=== PATIENT | male | born 1975 | race Caucasian/White ===

== ENCOUNTER → 2016-02-17 | Outpatient (CLI) | payer BC, MEDICAID ==
[2016-02-17 10:19] LABS: ALT 165 U/L (21-72); AST 79 U/L (17-59); Alkaline Phosphatase 60 U/L (38-126); Anion Gap 16 mmol/L; Blood Urea Nitrogen 11 mg/dL (9-20); Calcium 9.8 mg/dL (8.4-10.2); Carbon Dioxide 27 mmol/L (22-30); Chloride 102 mmol/L (98-107); Glucose 92 mg/dL (74-99); Non-African American GFR(MDRD) >60 (>60 ml/min/1.73 sqM); Potassium 4.5 mmol/L (3.5-5.1); Sodium 145 mmol/L (137-145); Total Bilirubin 1.1 mg/dL (0.2-1.3); Total Protein 7.6 g/dL (6.3-8.2)
[2016-02-17 10:50] LABS: Hepatitis B Surface Ag Index 0.05
[2016-02-17 10:56] LABS: Hepatitis B Core IgM Index 0.04
[2016-02-17 11:07] LABS: Hepatitis C Virus IgG Index 0.01
[2016-02-17 11:12] LABS: Hepatitis C Virus IgG Ab Negative (Negative)
== END | disposition home or self-care (01) ==
LOC: LABWHC1 08:21
PROVIDERS: ATTEND Internal Medicine
DX: D64.9 Anemia, unspecified (principal); R94.5 Abnormal results of liver function studies; I10 Essential (primary) hypertension
CPT/HCPCS: 36415; 80053; 80074; 82728; 83516; 86038; 86376

== ENCOUNTER → 2016-02-21 | Outpatient (CLI) | payer BC ==
--- NOTE | 2016-02-21 08:15 | US ---
EXAMINATION TYPE: US abdomen complete DATE OF EXAM: 02/21/2016 7:20 AM COMPARISON: 2012 Limited abdominal ultrasound and March 26, 2009 CT CAP in PACS CLINICAL HISTORY: Abnormal LFT's EXAM MEASUREMENTS: Liver Length: 18.0 cm Gallbladder Wall: 0.2 cm CBD: 0.3 cm Spleen: 13.1 cm Right Kidney: 12.0 x 5.6 x 6.1 cm Left Kidney: 13.3 x 5.4 x 5.9 cm ANATOMY: TECHNOLOGIST IMPRESSION: Pancreas: Majority of pancreas obscured by bowel gas Liver: Heterogeneously hyperechoic suggesting diffuse fatty infiltration. Gallbladder: wnl Evidence for sonographic Higgins's sign: No CBD: wnl Spleen: Upper limits of normal for size stable from 2010 CT Right Kidney: wnl Left Kidney: No evidence of hydro Upper IVC: wnl Abd Aorta: wnl Heterogeneous hyperechoic liver without intrahepatic ductal dilatation. Evaluation for focal masses i s limited due to the heterogeneity. IMPRESSION: Heterogeneous liver may reflect diffuse fatty infiltration or underlying hepatocellular d isease. Former is favored. Imaging guided random biopsy for tissue analysis can be performed if cassie ed.
== END | disposition home or self-care (01) ==
LOC: RADUSWWP 06:59
PROVIDERS: ATTEND Internal Medicine
DX: R94.5 Abnormal results of liver function studies (principal)
CPT/HCPCS: 76700

== ENCOUNTER → 2017-08-29 | Outpatient (CLI) | payer BC, MEDICAID ==
--- NOTE | 2017-08-29 21:04 | CONS ---
CONSULTATION DATE OF SERVICE: 08/29/2018 42-year-old gentleman who has been evaluated in Sleep Center for obstructive sleep apnea-hypopnea syndrome. HISTORY OF PRESENT ILLNESS/SLEEP WAKE EVALUATION: Patient usual sleep schedule from 11:00 p.m. to 6 am and he gets out of bed at 6:15 am to 6:30 a.m. on working days and about 9:00 a.m. on weekends. FALLING ASLEEP: No problem with falling asleep, although he has TV set in bedroom. DURING SLEEP: He wakes up from sleep 2 times with nocturia. He snores, has witnessed episodes of stopped breathing during the sleep. He also remembers awakenings from sleep with gasping for air and dry mouth. DURING THE DAY/SLEEP WAKE EVALUATION: During the day, he has problem with concentration. [place] Sleepiness Scale increased to 10. PAST MEDICAL HISTORY: Positive for hypertension. PAST SURGICAL HISTORY: Rectal fistula surgery 2014. MEDICATIONS: Lotrel, vitamins B12, C, aspirin, multivitamins. SOCIAL HISTORY: Positive for smoking in the past, quit 6 years ago. Alcohol consumption occasional. FAMILY HISTORY: Hypertension, heart problems, hyperlipidemia, arthritis, sleep apnea, snoring, insomnia. REVIEW OF SYSTEMS: Awakenings from sleep, sleepiness during the day. Increasing weight. Patient increased his weight for the last 5 years and around 25 pounds. PHYSICAL EXAM: gentleman without distress. BP 140/84, HR 84, RR 18, height 5 feet 9 inches, weight 248.4, BMI 36.6, temperature 98.0. Oxygen saturation on room air 96%. Oropharynx extremely low position of soft palate. Slight restriction of nasal breathing. ABDOMEN: Obese. Neck Supple, no JVD. Thyroid is not palpable. LUNGS Clear to percussion and to auscultation. Good air exchange. No wheezing or rhonchi. HEART S1, S2 regular. No murmurs, gallops, or rubs. ABDOMEN: Obese. Soft and nontender. Bowel sounds are present. No organomegaly appreciated. EXTREMITIES No clubbing or cyanosis. FINGERNAIL SCULPTOR Awake, alert, and oriented X3. Cranial nerves 2 to 7 intact. There is no fasciculation or atrophy. noted. No focal deficits observed. IMPRESSION: 1. Snoring, witnessed episodes of stopped breathing during the sleep awakenings with gasping for air, extremely low position of soft palate, wide neck 18-1/2 inches in circumference. Obstructive sleep apnea-hypopnea syndrome. 2. Obesity, BMI 36.6. 3. Hypertension. 4. Status post surgery for rectal fistula in 2014. PLAN: 1. Polysomnography for evaluation of patient's breathing during sleep. 2. CPAP/BiPAP titration if sleep study confirms obstructive sleep apnea-hypopnea syndrome. 3. Preferable position during sleep on the side. 4. No driving if patient feels any sleepiness. 5. I will see patient for follow up visit to explain results of testing and following plan. Thank you very much for referring this patient for consultation. Sincerely, Tevin Black MD, PhD, FAASM Diplomat of [employer] of [employer] Compressor Station Operator of [facility] [place] MMODL / IJN: [id number] /
== END | disposition home or self-care (01) ==
LOC: SLEEP 16:23
PROVIDERS: ATTEND Internal Medicine
DX: G47.33 Obstructive sleep apnea (adult) (pediatric) (principal); M27.8 Other specified diseases of jaws; E66.9 Obesity, unspecified; I10 Essential (primary) hypertension; Z98.890 Other specified postprocedural states; Z87.891 Personal history of nicotine dependence; Z79.82 Long term (current) use of aspirin; Z68.36 Body mass index [BMI] 36.0-36.9, adult; Z79.899 Other long term (current) drug therapy; Z83.6 Family history of other diseases of the respiratory system
CPT/HCPCS: 99211

== ENCOUNTER → 2018-01-30 | Outpatient (CLI) | payer MEDICAID ==
--- NOTE | 2018-01-30 16:52 | PN ---
PROGRESS NOTE DATE OF SERVICE: 01/30/2018 This patient is a 43-year-old gentleman who has been followed in Sleep Center for treatment of obstructive sleep apnea-hypopnea syndrome. Recently the patient had a polysomnogram and CPAP titration, and I discussed results of the sleep studies with the patient in detail. He has severe sleep apnea. Subsequently after titration he received his CPAP unit and started to use it. Today is his first visit following his receipt of his CPAP unit. The patient is able to use CPAP equipment most of the night without significant problems related to mask fitting, pressure and humidification. Sometimes he feels it is not enough pressure for him when he is starting to use CPAP. He feels better with the CPAP. He sleeps better and feels better during the day. [place] Sleepiness Scale is 0 today. I checked his CPAP machine. CPAP pressure is 11 cm of water. RAMP started from 5 cm of water in automatic regimen. Usage is 27/30 nights and about 70% of the nights for more than 4 hours. Average usage 5.2 hours. Leak is 20 L/minute, which is in normal range. Apnea-hypopnea index only 0.1, which is absolutely perfect. MEDICATIONS: 1. Lotrel. 2. Vitamin B12. 3. Aspirin. 4. Multivitamins. PHYSICAL EXAMINATION: GENERAL: A pleasant patient in no distress. VITAL SIGNS: BP 125/86, HR 80, RR 16, weight 249, temperature 97.8, oxygen saturation at room air 95%. HEENT: PERRLA, EOMI. Evaluation of oropharynx showed tongue protrudes midline. Extremely low position of soft palate. NECK: Supple. No JVD. Thyroid is not palpable. LUNGS: Clear to percussion and to auscultation. Good air exchange. No wheezing or rhonchi. HEART: S1, S2 regular. No murmurs, gallops or rubs. ABDOMEN: Slightly obese. EXTREMITIES: No clubbing or cyanosis. SPORTS COMMENTATOR: Awake, alert, and oriented X3. Cranial nerves 2 to 7 intact. There is no fasciculation or atrophy. noted. No focal deficits observed. IMPRESSION: 1. Severe obstructive sleep apnea-hypopnea syndrome; apnea-hypopnea index 42 with oxygen saturation 84%, controlled with CPAP at 11 cm of water. Patient demonstrated good compliance with treatment, benefitting from treatment. 2. Obesity. 3. Hypertension. 4. Status post surgery for rectal fistula in 2014. PLAN: 1. Patient will continue to use CPAP equipment every night for the whole night. 2. I changed RAMP from automatic regimen starting at 5 cm of water to 15 cm of time frame starting from 7 cm of water. 3. Losing weight. 4. Sleep hygiene with regular time in bed for at least 8 hours. 5. No driving if feeling any sleepiness. 6. We will maintain all necessary prescription for mask, tube and filters. Thank you very much for allowing me to participate in the management of your patient. Sincerely, Tevin Black MD, PhD, FAASM Diplomat of [employer] of [employer] Medicine Cancellation Clerk of [facility] [place] MMODL / IJN: [id number] /
== END | disposition home or self-care (01) ==
LOC: SLEEP 15:33
PROVIDERS: ATTEND Internal Medicine
DX: G47.33 Obstructive sleep apnea (adult) (pediatric) (principal); E66.9 Obesity, unspecified; I10 Essential (primary) hypertension; Z99.89 Dependence on other enabling machines and devices; Z98.890 Other specified postprocedural states; Z79.82 Long term (current) use of aspirin; Z79.899 Other long term (current) drug therapy

== ENCOUNTER → 2019-03-12 | Outpatient (CLI) | payer MEDICAID ==
--- NOTE | 2019-03-12 09:20 | US ---
EXAMINATION TYPE: US liver DATE OF EXAM: 03/12/2019 COMPARISON: CLINICAL HISTORY: Abn liver function studies R94.5. abnormal labs. Hx fatty liver. EXAM MEASUREMENTS: Liver Length: 11.1 x 6.0 x 6.4 cm Gallbladder Wall: 0.2 cm CBD: 0.5 cm Right Kidney: 11.1 x 6.0 x 6.4 cm Pancreas: Tail obscured by overlying bowel gas Liver: Increased attenuation, decreased visualization of vessels suggestive of fatty infiltrate. Ar ea of focal sparing visualized adjacent to GB. Gallbladder: wnl, fold seen Evidence for sonographic Higgins's sign: neg CBD: wnl Right Kidney: No hydronephrosis or masses seen , cortical measured differentiation is maintained. There is no ascites. IMPRESSION: Findings suggest hepatic steatosis. Exam is limited. The may be underlying hepatomegaly.
== END | disposition home or self-care (01) ==
LOC: RADUSWWP 07:30
PROVIDERS: ATTEND Internal Medicine
DX: R94.5 Abnormal results of liver function studies (principal)
CPT/HCPCS: 76705

== ENCOUNTER → 2021-10-24 | Outpatient (CLI) | payer MEDICAID ==
[2021-10-24 14:53] LABS: HCT 50.7 % (39.6-50.0); HGB 17.3 g/dL (13.0-17.0); MCHC 34.1 g/dL (32.0-37.0); MCV 90.9 fL (80.0-97.0); Mean Platelet Volume 10.7 fL (9.5-12.2); NRBC Per 100 WBC 0 /100 WBCS (0.0-0.0); Platelet Count 176 X 10*3/uL (140-440); RBC 5.58 X 10*6/uL (4.40-5.60); RDW 12.4 % (11.5-14.5); WBC 6.08 X 10*3/uL (4.50-10.00)
[2021-10-24 15:29] LABS: Erythrocyte Sedimentation Rate 8 mm/Hr (0-15)
[2021-10-24 17:11] LABS: Chol/HDL Ratio 6.09 Ratio; LDL Cholesterol,Calculated 167.1 mg/dL (0.0-131.0); Rheumatoid Factor, Qnt <10 IU/mL (0-15)
[2021-10-24 17:15] LABS: ALT 164 U/L (10-49); AST 115 U/L (14-35); Albumin 4.8 g/dL (3.8-4.9); Albumin/Globulin Ratio 1.92 (1.60-3.17); Alkaline Phosphatase 87 U/L (41-126); BUN/Creat Ratio 9.57 Ratio (12.00-20.00); Blood Urea Nitrogen 6.7 mg/dL (9.0-27.0); Calcium 9.5 mg/dL (8.7-10.3); Carbon Dioxide 27.3 mmol/L (20.0-27.5); Chloride 100 mmol/L (96-109); Globulin 2.5 g/dL (1.6-3.3); Glucose 98 mg/dL (70-110); Non-African American GFR(CKD) 114.8 (60.0-200.0); Potassium 3.8 mmol/L (3.5-5.5); Sodium 141 mmol/L (135-145); Total Protein 7.3 g/dL (6.2-8.2)
== END | disposition home or self-care (01) ==
LOC: LABWHC1 08:50
PROVIDERS: ATTEND Physician Assistant
DX: Z00.00 Encounter for general adult medical examination without abnormal findings (principal); I10 Essential (primary) hypertension; M79.641 Pain in right hand
CPT/HCPCS: 36415; 80053; 80061; 83036; 84443; 85027; 85652; 86038; 86039; 86140; 86431

== ENCOUNTER → 2023-01-24 | Outpatient (CLI) | payer MEDICAID ==
--- NOTE | 2023-01-24 15:34 | P.SLEEP ---
History of Present Illness DATE: 01/24/2023 CONSULTATION/NEW PATIENT EVALUATION HISTORY OF PRESENT ILLNESS/SLEEP-WAKE EVALUATION: 48-year-old gentleman had been evaluated in the sleep center for obstructive sleep apnea hypopnea syndrome. Patient was evaluated in our office about 4 years ago. Polysomnogram showed severe obstructive sleep apnea hypopnea syndrome with apnea-hypopnea index 39.5. Patient was started on treatment with CPAP. She successfully used CPAP for several years. Several months ago humidifier chamber was broken and patient was not able to use CPAP equipment anymore. I checked CPAP unit. CPAP pressure is 11 cm of water, leak 17 L/m, apnea-hypopnea index 6.4, which is slightly above normal normal. SLEEP SCHEDULE: Usually sleep schedule from 11 PM to 6:30 AM on weekdays and until 9 AM on weekend. FALLING ASLEEP: No problems with falling asleep. DURING SLEEP: No snoring with CPAP but patient wakes up from sleep up to 3 times with 2 episodes of nocturia presently without CPAP. No history of hypnogogical hallucinations, sleep paralysis, or cataplexy. DURING THE DAY/WAKE STATE: Patient feels tiredness and sleepiness during the day while not using CPAP. [place] sleepiness scale is 9. Usually patient doesn't take scheduled naps. PAST MEDICAL HISTORY: Hypertension. PAST SURGICAL HISTORY: Anal fissure surgery. MEDICATIONS: Lisinopril 40 mg once a day, hydrochlorothiazide 12.5 mg once a day. SOCIAL HISTORY: Positive history of smoking for 20 years up to 2 packs a day, quit 12 years ago, alcohol consumption occasional. FAMILY HISTORY: Heart problems, hyperlipidemia. REVIEW OF SYSTEMS: Snoring and sleepiness without CPAP. No fevers. No double vision. No recent chest pain. No shortness of breath. No abdominal pain. No bleeding episodes. No blood in urine. No seizure episodes. PHYSICAL EXAMINATION: GENERAL: A pleasant patient without any distress. VITAL SIGNS: BP 165/108 on the right arm and 151/90 on left arm , HR 108 , RR 16 , weight 289.2 pounds, height 5 foot 9 inches, body mass index 42.6 . HEENT: PERRLA, EOMI. Evaluation of oropharynx showed tongue protrudes midline, l ow position of soft palate Mallampati 4. NECK: Supple. No JVD. Thyroid is not palpable. 20-3/4 inches in circumference. LUNGS: Clear to percussion and to auscultation. Good air exchange. No wheezing or rhonchi. HEART: S1, S2 regular. No murmurs, gallops or rubs. ABDOMEN: Soft and nontender. Bowel sounds are present. No organomegaly appreciated. EXTREMITIES: No clubbing or cyanosis. SPORTS STATISTICIAN: Awake, alert, and oriented x3. Cranial nerves 2 to 7 intact. There is no fasciculation or atrophy noted. No focal deficits observed. ASSESSMENT: 1. Severe obstructive sleep apnea hypopnea syndrome. Humidifier chamber from CPAP unit is broken. Reading from CPAP unit showed practically normal respiration on CPAP. 2. Obesity, BMI 42.6. 3. Hypertension. 4. Status post rectal fistula surgery in 2014. PLAN: 1. Prescription for all necessary CPAP supplies including humidifier chamber. 2. Patient will continue to use CPAP equipment every night for the whole night. 3. Preferable position during sleep on the side. 4. No driving if patient feels any sleepiness. Patient is aware of civil and criminal liability for unsafe driving. 5. Sleep hygiene with regular sleep time for at least 7.5-8 hours. 6. Watching and losing weight. 7. Follow-up visit in 6 months or earlier if patient has any problems Thank you very much for referring this patient for consultation. Sincerely, Tevin Black MD, PhD, FAASM. Diplomat of [employer], Sleep Medicine Board by [employer] of [employer] Medicine Fringing Machine Operator of [facility] [place] Past Medical History Past Medical History: Hyperlipidemia, Hypertension History of Any Multi-Drug Resistant Organisms: None Reported Additional Past Surgical History / Comment(s): Anal fistula, brith gayatri removal Past Psychological History: No Psychological Hx Reported Past Alcohol Use History: Occasional Past Drug Use History: None Reported Medications and Allergies Home Medications Medication Instructions Recorded Confirmed Type Amoxic-Pot Clav 875-125Mg 1 each PO Q12HR 11/21/14 11/21/14 History [Augmentin Xr 875-125] Cephalexin [Keflex] 500 mg PO Q6HR #40 cap 11/21/14 Rx HYDROcodone/IBUPROFEN 7.5-200 1 each PO Q6HR PRN #10 tab 11/21/14 Rx [Vicoprofen 7.5-200 mg] Mupirocin 2% Oint [Bactroban 2% 1 applic TOPICAL TID #22 gm 11/21/14 Rx Oint] amLODIPine BESYLATE/BENAZEPRIL 1 each PO DAILY 11/21/14 11/21/14 History [Lotrel 10-40 mg Capsule] Allergies Allergy/AdvReac Type Severity Reaction Status Date / Time No Known Allergies Allergy Verified 11/21/14 10:40 Sleep Note - Sleep Note Sleep Note: Temperature: Pulse Rate: Respiratory Rate: Blood Pressure: SpO2: Height: Weight: BMI: Neck Circumference:
== END ==
LOC: 3 N SLEEP 14:46
PROVIDERS: ATTEND Internal Medicine
DX: G47.33 Obstructive sleep apnea (adult) (pediatric) (principal); E66.9 Obesity, unspecified; I10 Essential (primary) hypertension; Z68.41 Body mass index [BMI] 40.0-44.9, adult; Z98.890 Other specified postprocedural states; Z99.89 Dependence on other enabling machines and devices; Z79.899 Other long term (current) drug therapy; Z87.891 Personal history of nicotine dependence
CPT/HCPCS: 99211

== ENCOUNTER → 2023-03-13 | Outpatient (CLI) | payer MEDICAID ==
[2023-03-14 02:30] LABS: HCT 52.6 % (39.6-50.0); HGB 16.7 g/dL (13.0-17.0); MCH 29.9 pg (27.0-32.0); MCHC 31.7 g/dL (32.0-37.0); MCV 94.3 FL (80.0-97.0); NRBC Per 100 WBC 0 X 10*3/uL (0.00-0.01); Platelet Count 173 X 10*3/uL (140-440); RBC 5.58 X 10*6/uL (4.40-5.60); RDW 12.4 % (11.5-14.5); WBC 8.29 X 10*3/uL (4.50-10.00)
[2023-03-14 03:00] LABS: Chol/HDL Ratio 4.69 Ratio
== END | disposition home or self-care (01) ==
LOC: LABWHC1 14:24
PROVIDERS: ATTEND Physician Assistant
DX: Z00.00 Encounter for general adult medical examination without abnormal findings (principal)
CPT/HCPCS: 36415; 80061; 83036; 84403; 84443; 85027

== ENCOUNTER → 2023-04-29 | Outpatient (CLI) | payer MEDICAID ==
--- NOTE | 2023-04-29 10:49 | CA ---
Transthoracic Echo Report Name: Mitchel Cleaning Age: 48 Gender: M : 1975 Exam Date: 04/29/2023 08:51 Exam Location: [place] [facility] Ht (in): 61 Wt (lb): 280 Ordering Physician: Leslie Grigsby DO Attending/Referring Phys: Audrey Fang [facility] Home Health Physical Therapist Carey Cornell RDCS Procedure CPT: Indications: I10 HTN Cardiac Hx: Technical Quality: Contrast 1: Total Dose (mL): Contrast 2: Total Dose (mL): MEASUREMENTS (Male / Female) Normal Values 2D ECHO LV Diastolic Diameter PLAX 4.4 cm 4.2 - 5.9 / 3.9 - 5.3 cm LV Systolic Diameter PLAX 3.0 cm IVS Diastolic Thickness 1.3 cm 0.6 - 1.0 / 0.6 - 0.9 cm LVPW Diastolic Thickness 1.1 cm 0.6 - 1.0 / 0.6 - 0.9 cm LV Relative Wall Thickness 0.5 LVOT Diameter 2.2 cm LA Systolic Diameter LX 3.9 cm 3.0 - 4.0 / 2.7 - 3.8 cm LA Volume 46.4 cm??? 18 - 58 / 22 - 52 cm??? LA Volume Index 19.1 cm???/m??? 16 - 28 cm???/m??? DOPPLER AV Peak Velocity 102.7 cm/s AV Peak Gradient 4.2 mmHg AV Mean Velocity 67.6 cm/s AV Mean Gradient 2.1 mmHg AV Velocity Time Integral 20.3 cm LVOT Peak Velocity 107.9 cm/s LVOT Peak Gradient 4.7 mmHg LVOT Velocity Time Integral 21.3 cm LVOT Stroke Volume 82.8 cm??? LVOT Stroke Volume Index 38.0 ml/m??? AV Area Cont Eq vti 4.1 cm??? AV Area Cont Eq pk 4.1 cm??? MV Area PHT 3.7 cm??? Mitral E Point Velocity 82.2 cm/s Mitral A Point Velocity 78.8 cm/s Mitral E to A Ratio 1.0 MV Deceleration Time 204.8 ms TR Peak Velocity 180.5 cm/s TR Peak Gradient 13.0 mmHg PV Peak Velocity 71.8 cm/s PV Peak Gradient 2.1 mmHg FINDINGS Left Ventricle Left ventricular ejection fraction is estimated at 55-60 %. Normal left ventricular systolic function with no obvious regional wall motion abnormalities. Mildly increased wall thickness. Right Ventricle Normal right ventricular size. Right Atrium Normal right atrial pressure. Left Atrium Normal left atrial size. Mitral Valve No mitral regurgitation. Aortic Valve Trileaflet aortic valve. Tricuspid Valve Trace tricuspid regurgitation. Pulmonic Valve No pulmonic regurgitation. Pericardium No pericardial effusion. Aorta Normal size aortic root and proximal ascending aorta. CONCLUSIONS Left ventricular ejection fraction is estimated at 55-60 %. Mildly increased wall thickness. Normal left ventricular systolic function with no obvious regional wall motion abnormalities. No significant valvular dysfunction No pericardial effusion Previewed by: Dr Rolando Delarosa (Electronically Signed) Final Date: 29 April 2023 10:48
--- NOTE | 2023-04-29 11:33 | US ---
EXAMINATION TYPE: US renal artery duplex complet DATE OF EXAM: 04/29/2023 COMPARISON: NONE CLINICAL INDICATION: Male, 48 years old with history of I10 HTN; HTN since age 20, medication no long ing working, large body habitus MEASUREMENTS: RENAL SIZE: Right Kidney: 10.9 x 5.9 x 6.8cm Left Kidney: 13.4 x 5.5 x 6.0cm Right Kidney: No hydronephrosis or lesions seen Left Kidney: large in size, otherwise wnl Abd Aorta: limited views due to bowel gas and habitus RESISTANCE INDEX Right: 0.6 Left: 0.6 RA/AO RATIO (< 3.5 ) Right: 2.2 Left: 1.8 RENAL ARTERY VELOCITY ( < 180 cm/s) Right: 207.7 Left: 173.0 Tuck Pointer Notes: limited views due to bowel gas and habitus, unable to see proximal renal arteries bilaterally IMPRESSION: Evidence of renal artery stenosis, right greater than left.
== END | disposition home or self-care (01) ==
LOC: RADECHMAIN 08:16
PROVIDERS: ATTEND Family Medicine
DX: I70.1 Atherosclerosis of renal artery (principal); I11.9 Hypertensive heart disease without heart failure
CPT/HCPCS: 93306; 93975

== ENCOUNTER → 2023-09-25 | Outpatient (CLI) | payer MEDICAID | LOC: 3 N SLEEP 15:20 | PROVIDERS: ATTEND Internal Medicine | CPT/HCPCS: 99212 ==

== ENCOUNTER → 2023-10-31 | Outpatient (CLI) | payer MEDICAID ==
[2023-10-31 15:33] LABS: HCT 49.5 % (39.6-50.0); HGB 16.6 g/dL (13.0-17.0); MCH 30.6 pg (27.0-32.0); MCHC 33.5 g/dL (32.0-37.0); MCV 91.2 FL (80.0-97.0); Mean Platelet Volume 10.6 FL (9.5-12.2); NRBC Per 100 WBC 0 X 10*3/uL (0.00-0.01); Platelet Count 198 X 10*3/uL (140-440); RBC 5.43 X 10*6/uL (4.40-5.60); RDW 12.5 % (11.5-14.5); WBC 8.35 X 10*3/uL (4.50-10.00)
[2023-10-31 15:48] LABS: ALT 102 U/L (10-49); AST 77 U/L (14-35); Albumin 4.6 g/dL (3.8-4.9); Alkaline Phosphatase 69 U/L (41-126); BUN/Creat Ratio 9.43 Ratio (12.00-20.00); Blood Urea Nitrogen 6.6 mg/dL (9.0-27.0); Calcium 9.4 mg/dL (8.7-10.3); Carbon Dioxide 22.6 mmol/L (21.6-31.8); Chloride 103 mmol/L (96-109); Chol/HDL Ratio 4.41 Ratio; Globulin 2.7 g/dL (1.6-3.3); Glucose 88 mg/dL (70-110); LDL Cholesterol,Calculated 145.3 mg/dL (0.0-131.0); Potassium 4.2 mmol/L (3.5-5.5); Sodium 139 mmol/L (135-145); Total Bilirubin 0.7 mg/dL (0.3-1.2); Total Protein 7.3 g/dL (6.2-8.2)
== END | disposition home or self-care (01) ==
LOC: LABWHC1 11:24
PROVIDERS: ATTEND Nurse Practitioner Family
DX: Z13.220 Encounter for screening for lipoid disorders (principal); R73.02 Impaired glucose tolerance (oral); R53.83 Other fatigue
CPT/HCPCS: 36415; 80053; 80061; 83036; 84443; 85027

== ENCOUNTER → 2023-11-07 | Outpatient (CLI) | payer MEDICAID ==
--- NOTE | 2023-11-07 13:53 | USB ---
Reason for Exam: Clinical finding. Findings: The area of palpable concern of both breasts, the axilla of both breasts and the retroareolar of both breasts were scanned. No solid or cystic masses are identified. Very minimal gynecomastia is not entirely excluded. No suspicious masses evident. Overall Assessment: Benign, BI-RAD 2 Electronically signed and approved by: Timothy Morillo D.O. Radiologis
--- NOTE | 2023-11-07 13:54 | MM ---
Reason for Exam: Clinical finding. Baseline mammogram. Indicated Problems: Pain of both sides for 3 Month(s). Prior Study Comparison: Patient's first Mammogram. No prior studies available for comparison. Tissue Density: The breasts are almost entirely fatty. Findings: Analyzed By CAD. The pattern is symmetrical. Extremely minimal parenchymal tissue may be in the subareolar breast. Some mild gynecomastia is not entirely excluded No suspicious groups of microcalcifications, spiculated or lobular masses, architectural distortion or other secondary signs of malignancy are mammographically apparent. Overall Assessment: Incomplete: need additional imaging evaluation, BI-RAD 0 Management: Diagnostic Breast Ultrasound of both breasts. A negative mammogram report should not preclude additional follow up of suspicious palpable abnormalities. Patient should continue monthly self breast exam. A clinical breast exam by your physician is recommended on an annual basis and results should be correlated with mammographic findings. Note on Jimena scores and lifetime risk: 1. A Jimena score greater than 3% is considered moderate risk. If this is the case, consider specialist referral to assess eligibility for a risk reducing agent. 2. If overall lifetime risk for the development of breast cancer is 20% or higher, the patient may qualify for future screening with alternating mammogram and breast MRI. [facility], , 11/07/2023 1:51 PM. Electronically signed and approved by: Timothy Morillo D.O. Radiologis
== END | disposition home or self-care (01) ==
LOC: RADMAMWWP 13:04
PROVIDERS: ATTEND Family Medicine
DX: N63.0 Unspecified lump in unspecified breast
CPT/HCPCS: 77062; 77066

== ENCOUNTER → 2024-05-13 | Outpatient (CLI) | payer MEDICAID ==
[2024-05-13 14:29] VITALS: BP 166/97; PULSE 102; RESP 16; TEMP 98.4
--- NOTE | 2024-05-13 16:09 | P.PROGSL ---
Subjective DATE: 05/13/2024 FOLLOW UP VISIT. Patient with obstructive sleep apnea hypopnea syndrome return to sleep center for follow-up visit. Information from previous visit have been reviewed. This is first visit after patient received new CPAP unit. Patient is using PAP equipment every night for the whole night, getting PAP supplies in time. The patient does not have significant problems with the mask, PAP unit and humidification. [place] sleepiness scale is 7. I checked information from PAP unit. PAP unit pressure 11 cm H2O. Usage is 90% and 83% for more then 4 hours, average 7 hours per night. Leak is 15 l/m, which is in acceptable range. Apnea Hypopnea Index is 1.0, which is normal. MEDICATIONS have been reviewed, please see below. During physical exam: GENERAL: A pleasant patient without any distress. VITAL SIGNS: Please see below, weight is 294 lbs. HEENT: PERRLA, EOMI.low position of soft palate, Mallapati 3 . NECK: Supple. No JVD. LUNGS: Clear to percussion and to auscultation. Good air exchange. No wheezing or rhonchi. HEART: S1, S2 regular. ABDOMEN: Soft and nontender.[] EXTREMITIES: No clubbing or cyanosis. CAD ENGINEER: Awake, alert, and oriented x3. No focal deficit. Impressions: 1. Obstructive sleep apnea-hypopnea syndrome. Patient demonstrated great compliance with treatment, benefiting from treatment. 2. Obesity. 3. Hypertension. Plan: 1. Continue using PAP equipment every night for the whole night. 2. Sleep hygiene with regular time in bed for at least 7.5-8 hours 3. PAP unit should stay lower then position of the head. 4. Advised patient to remove all remaining water from humidifier canister daily and make it dry after each usage. Refill canister with fresh distilled water before each usage. 5. Watching and losing weight. 6. Precautions related to driving. No driving if feel any sleepiness. 7. I will maintain prescription for PAP supplies including mask, tube, filters. 8. Follow up visit in 8 months or earlier if patient has any problems. Thank you very much for allowing me to participate in the management of your patient. Tevin Black MD, PhD, FAASM. Diplomat of [place] [employer], Sleep Medicine Board by [place] [employer] Band Tier of [facility] [place] Objective - Vital Signs Vital Signs: Vital Signs Temp 98.4 F 05/13/24 14:28 Pulse 102 H 05/13/24 14:28 Resp 16 05/13/24 14:28 BP 166/97 05/13/24 14:28 Pulse Ox 98 05/13/24 14:28 FiO2 Intake & Output 05/12/24 05/13/24 05/13/24 18:59 06:59 18:59 Weight 133.356 kg Home Medications: Home Medications Medication Instructions Recorded Confirmed Type Amoxic-Pot Clav 875-125Mg 1 each PO Q12HR 11/21/14 11/21/14 History [Augmentin Xr 875-125] Cephalexin [Keflex] 500 mg PO Q6HR #40 cap 11/21/14 Rx HYDROcodone/IBUPROFEN 7.5-200 1 each PO Q6HR PRN #10 tab 11/21/14 Rx [Vicoprofen 7.5-200 mg] Mupirocin 2% Oint [Bactroban 2% 1 applic TOPICAL TID #22 gm 11/21/14 Rx Oint] amLODIPine BESYLATE/BENAZEPRIL 1 each PO DAILY 11/21/14 11/21/14 History [Lotrel 10-40 mg Capsule]
== END ==
LOC: 3 N SLEEP 13:56
PROVIDERS: ATTEND Internal Medicine
DX: G47.33 Obstructive sleep apnea (adult) (pediatric) (principal); E66.01 Morbid (severe) obesity due to excess calories; I10 Essential (primary) hypertension; Z87.891 Personal history of nicotine dependence
CPT/HCPCS: 99212

== ENCOUNTER → 2024-06-16 | Outpatient (CLI) | payer MEDICAID ==
--- NOTE | 2024-06-16 14:43 | US ---
EXAMINATION TYPE: US venous doppler duplex LE BI DATE OF EXAM: 06/16/2024 2:30 PM COMPARISON: NONE CLINICAL INDICATION: Male, 49 years old with history of R22.42 SWELLING OF LT LOWER LIMB,R22.41 SWELL ING OF RT LOWER; Edema, Pain TECHNIQUE: The lower extremity deep venous system is examined utilizing real time linear array sonog nolan with graded compression, color doppler sonography, and spectral doppler. SIDE PERFORMED: Bilateral FINDINGS: VESSELS IMAGED: Common Femoral Vein Deep Femoral Vein Greater Saphenous Vein * Femoral Vein Popliteal Vein Small Saphenous Vein * Proximal Calf Veins (* superficial vessels) Right Leg: Negative for DVT, Color Doppler imaging shows patency of the vessels. Spectral waveforms are within normal limits. Left Leg: Negative for DVT, Color Doppler imaging shows patency of the vessels. Spectral waveforms a re within normal limits. IMPRESSION: No ultrasound evidence for deep venous thrombosis. [facility], , 06/16/2024 2:41 PM
== END | disposition home or self-care (01) ==
LOC: RADUSWWP 13:28
PROVIDERS: ATTEND Family Medicine
DX: R22.43 Localized swelling, mass and lump, lower limb, bilateral (principal)
CPT/HCPCS: 93970

== ENCOUNTER → 2024-07-02 | Outpatient (CLI) | payer MEDICAID ==
[2024-07-02 15:32] LABS: HCT 49.6 % (39.6-50.0); HGB 16.5 g/dL (13.0-17.0); MCHC 33.3 g/dL (32.0-37.0); MCV 90.2 FL (80.0-97.0); Mean Platelet Volume 10.8 FL (9.5-12.2); NRBC Per 100 WBC 0 X 10*3/uL (0.00-0.01); Platelet Count 185 X 10*3/uL (140-440); RDW 12.4 % (11.5-14.5)
[2024-07-02 16:04] LABS: ALT 66 U/L (10-49); AST 57 U/L (14-35); Albumin 4.4 g/dL (3.8-4.9); Albumin/Globulin Ratio 1.83 Ratio (1.60-3.17); Alkaline Phosphatase 68 U/L (41-126); BUN/Creat Ratio 10.86 Ratio (12.00-20.00); Blood Urea Nitrogen 7.6 mg/dL (9.0-27.0); Calcium 9.2 mg/dL (8.7-10.3); Carbon Dioxide 22.8 mmol/L (21.6-31.8); Chloride 104 mmol/L (96-109); Chol/HDL Ratio 5.13 Ratio; Globulin 2.4 g/dL (1.6-3.3); Glucose 97 mg/dL (70-110); LDL Cholesterol,Calculated 128.2 mg/dL (0.0-131.0); Potassium 4.1 mmol/L (3.5-5.5); Sodium 139 mmol/L (135-145); Total Bilirubin 0.9 mg/dL (0.3-1.2); Total Protein 6.8 g/dL (6.2-8.2)
== END | disposition home or self-care (01) ==
LOC: LABWHC1 09:38
PROVIDERS: ATTEND Family Medicine
DX: I10 Essential (primary) hypertension (principal); I70.1 Atherosclerosis of renal artery; R73.02 Impaired glucose tolerance (oral)
CPT/HCPCS: 36415; 80053; 80061; 83036; 84402; 84403; 84443; 85027